=== PATIENT | male | born 1960 | race Caucasian/White ===

== ENCOUNTER 2024-07-05 14:46 | Outpatient (AMB) | payer BC, SELFPAY ==
--- NOTE | 2024-07-05 14:52 | A.OFFPC_ITS ---
Vital Signs 07/05/24 14:59 Height 6 ft Weight 173 lb 2 oz BMI 23.5 BP 128/84 Blood Pressure Location Rt brachial Position Sitting Respiration 15 Pulse 56 Pulse Source Pulse Oximeter Temp 97.6 F Temp Source Oral Pulse Oximetry (%) 98 Oxygen Delivery Method Room Air Intake Visit Reasons: est care/Medication Intake Note: Ed presents in the office today to establish care. Allergies aspirin Allergy (Verified 07/05/24 15:14) Hives Medication List - Last Reconciled 07/05/24 by Kenji Guillory CNP No Known Home Meds Tobacco use date assessed: 07/05/24 Fall risk assessment: No Falls in past year Last assessed Fall Risk: 07/05/24 Dental Screening Dental Screen Date: 07/05/24 Did you have a dental visit in the last 12 months?: Yes Did you have a dental problem in the last 6 months where you did not have access to dental care?: No Was dental information given to patient?: Patient has dentist HPI HPI Comments History of Present Illness Details 64-year-old male presents to establish c are. Prior PCP? - [facility] Last office visit/CPE/labs - 2-3 years years ago Acute issue(s) - Reports persistent sour taste in his t hroat, worse upon waking up in the morning. Notes associated nausea. His symptoms waxes and wanes and has been ongoing for about a year. His symptoms usually improve with alcohol. - GERD. He notes occasionally heartburn with certain food or alcohol. He he takes cimetidine occasionally. 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 Does not vape. Drinks 6 pac ks beer on weekends. Smoke a couple hits of cannabis daily - Has been making healthy dietary choice s. Active but does not exercise. Generally sleep well Health maintenance - Last eye exam was 2 months ago with [facility]. He will sign a release for his PCP to obtain his opthlamology record - Last dental visit was earlier this thu - Last tetanus vaccine was more than 10 years ago; received Tdap vaccine today - Has not been vaccinated for the flu th is season; declines vaccination - He has never been vaccinated for shing les. Encouraged to get vaccinated for shingles at the local pharmacy. Declines vaccination - Last colonoscopy was over 3 years ago at [facility] [place]: Benign polyps. Will requests his colonoscopy record for review [facility] Family History (Updated 07/05/24 @ 16:02 by Latha Cuellar MA) Mother Diabetes Family/Other Diabetes Alcoholism Other Substance abuse Social History (Updated 07/05/24 @ 14:59 by Latha Cuellar MA) Housing: House Alcohol intake: current Patient Tobacco Use Status: Never used Tobacco e-Cigarette/Vaping Use: Never Used Second Hand Smoke Exposure: No Substance Use Type: Marijuana service: No Current occupational status: employed Current occupation: Engineering Current occupational exposures/hazards: No Cognitive needs: No Hearing needs: No Vision needs: Yes Questionnaire PHQ-9 Over the last 2 weeks, how often have you been bothered by any of the following problems? 1. Little interest or pleasure in doing things: not at all 2. Feeling down, depressed, or hopeless: not at all 3. Trouble falling or staying asleep, or sleeping too much: not at all 4. Feeling tired or having little energy: not at all 5. Poor appetite or overeating: not at all 6. Feeling bad about yourself - or that you are a failure or have let yourself or your family down: not at all 7. Trouble concentrating on things, such as reading the newspaper or watching television: not at all 8. Moving or speaking so slowly that other people could have noticed. Or the opposite - being so fidgety or restless that you have been moving around a lot more than usual: not at all 9. Thoughts that you would be better off or of hurting yourself in some way: not at all Total score: 0 Depression Screening Interpretation: Negative Depression Screening Done: Yes 70083 - PHQ-9 Billing: Patient declined-do not bill Source: Developed by Drs. Zoran Woodall, Natividad Venegas, Erick Garcia and colleagues, with an educational mickey from [employer]. Thrive Questionnaire Date Thrive assessed: 07/05/24 I am a: Patient What is your living situation today?: I have a steady place to live Within the past 12 months, did the food you bought not last and you didn't have the money to get more?: Never true Within the past 12 months, did you worry whether your food would run out before you got money to buy more?: Never true Do you have trouble paying for medicines?: No Do you have trouble getting transportation to medical appointments?: No Do you have trouble paying your heating and electricity bill?: No Do you have trouble taking care of your child, family member or friend?: No Do you have trouble with day-to-day activities such as bathing, preparing meals, shopping, managing finances, etc.?: No Are you currently unemployed and looking for a job?: No Are you interested in more education?: No Please select the resources that you would like help with: None Currently or been in a relationship where the following occur: I choose not to answer THRIVE Score: 0 AUDIT C Alcohol Use Questionnaire (AUDIT-C) 1. How often do you have a drink containing alcohol?: 2-4 times a month 2. How many drinks containing alcohol do you have on a typical day when you are drinking?: 5 or 6 3. How often do you have six or more drinks on one occasion?: Monthly Total Score: 6 Score Reviewed/Action Taken: Yes SOLO-7 AMB Questionnaire SOLO-7 Date SOLO - 7 assessed: 07/05/24 Feeling nervous, anxious, or on edge: 0 = Not at all Not being able to stop or control worryin = Not at all Worrying too much about different things: 0 = Not at all Trouble relaxin = Not at all Being so restless that it is hard to sit still: 0 = Not at all Becoming easily annoyed or irritable: 0 = Not at all Feeling afraid as if something awful might happen: 0 = Not at all Total SOLO-7 score (0-4 normal; 5-9 mild; 10-14 moderate; 15-21 severe): 0 Source: Developed by Drs. Zoran Woodall, Natividad Venegas, Erick Garcia and colleagues, with an educational mickey from [employer]. SOLO-7 Assessment Billing SOLO-7 Assessment Tool: SOLO-7 Assessment 59632 Review of Systems Const Details: Denies chills, Denies fatigue, Denies fever(s), Denies headache(s) and Denies weakness HEENT Denies change in vision, Denies dizziness, Denies headache(s), Denies hearing loss, Denies nasal congestion, Denies sinus pain, Denies sinus pressure and Denies sore throat Card Denies chest pain, Denies lightheadedness, Denies dyspnea and Denies other (p alpitations) Resp Denies cough, Denies dyspnea and Denies wheezing GI Reports sour taste, Denies abdominal pain, Denies melena, Denies hematochezia, Denies change in bowel habits, Denies dyspepsia and Denies nausea Denies hematuria and Denies dysuria Musc Denies abnormal gait, Denies myalgias, Denies arthralgias, Denies numbness and Denies tingling Skin/Breast Denies rash, Denies unusual bruising and Denies wounds Neuro Denies abnormal gait, Denies dizziness, Denies headache(s), Denies memory loss, Denies numbness, Denies Sensory deficit (Neuro), Denies tingling and Denies weakness Psych Denies anxiety, Denies depression and Denies memory loss Endo Denies cold intolerance, Denies fatigue, Denies heat intolerance, Denies polydipsia and Denies polyuria Jake/Lymph Denies easy bleeding and Denies easy bruising Aller/Immun Denies wheezing Physical exam (Primary Care) Vital Signs: Last Vital Signs Temp 97.6 F 07/05/24 14:59 Pulse 56 07/05/24 14:59 Resp 15 07/05/24 14:59 BP 128/84 07/05/24 14:59 Pulse Ox 98 07/05/24 14:59 Oxygen Delivery Method Room Air 07/05/24 14:59 BMI result Body Mass Index 23.5 Tobacco/Smoking Status: Tobacco use Status Tobacco use date assessed 07/05/24 07/05/24 15:02 Patient Tobacco Use Status Never used Tobacco 07/05/24 15:02 e-Cigarette/Vaping Use Never Used 07/05/24 15:02 PHQ-9: PHQ-9 Score PHQ-9: Total score 0 07/05/24 15:54 Depression Screening Interpretation: Negative Thrive Assessment: Date of Thrive Assessment Date Thrive assessed 07/05/24 07/05/24 15:02 Currently or been in a relationship where the following occur: I choose not to answer Const Other: General: no acute distress, well developed, alert and awake Nutritional Appearance: well nourished Orientation/consciousness: patient oriented x3 [facility] Head: Yes normocephalic and Yes atraumatic Ears: hearing grossly normal bilaterally and TM's normal bilaterally General nose exam: Normal external nose present and Normal nares present Mouth: Normal oral and palatal mucosa present and moist mucous membranes Teeth and gingiva: dentition normal Throat: Yes oropharynx normal Eyes Pupils: Equal, round and reactive pupils present and Pupil accommodation reflex normal EOM: EOMs intact bilaterally Neck Neck: Yes normal visual inspection, Yes no lymphadenopathy and Yes trachea midline Thyroid: Thyroid normal Carotids: no bruits Lymphatic: no lymphadenopathy noted Chest Chest palpation & inspection: normal inspection of the chest Resp Effort & Inspection: normal respiratory effort Auscultation: clear to auscultation bilaterally Cardio Rate: regular rate Rhythm: regular rhythm Heart sounds: S1 normal heart sound present, S2 normal heart sound present, no gallops, no murmurs and no rubs Bruits: no abdominal aortic bruits and no carotid bruits GI Palpation (GI): No Abdominal aortic bruit present, Soft to palpation, nontender, No hepatosplenomegaly present and No Rebound tenderness present Auscultation: normal bowel sounds General: Yes no CVA tenderness Back/Spine/Pelvis Back: no CVA tenderness Cervical Spine: cervical ROM normal and No Cervical spine tenderness Thoracic/Lumbar Spine: thoraco-lumbar ROM normal, No pain with thoraco-lumbar ROM, No thoracic spinal tenderness and No lumbar spinal tenderness Skin General: warm and dry. Normal skin color. Normal skin turgor Lesions: no lesions Rashes: no rashes Trauma: no lacerations or abrasions Wounds: no wounds Nails: normal Neuro General: patient oriented x3, gait normal and CN's II-XI intact bilaterally Cranial nerves: Yes Equal, round and reactive pupils present Cognition (Neuro): normal cognition Gait exam (Neuro): Normal gait present Motor exam (neuro): 5/5 motor strength present throughout Sensory Exam: No Sensory deficit (Neuro) Deep tendon reflexes (DTR's): Right patellar reflex intensity grade: 2+ and Left patellar reflex intensity grade: 2+ Extrem General: Yes normal to inspection, No edema and No calf tenderness Psych Appearance: grossly normal Affect: normal affect Attitude: cooperative Thought process: Normal thought process present Immunizations Boostrix Tdap 2.5 Lf unit-8 mcg-5 Lf/0.5 mL intramuscular syringe Performing Provider: Kenji Guillory CNP [place] [facility] Administered by: Misbah Mai RN on 07/05/24 15:54 Dose Route Admin Location Dispensed Lot Number Expiration Date NDC Culinary Assistant 0.5 mL IM Left Deltoid 0.5 mL [id number] 03/18/26 08537-088-49 [employer] VIS Given Date VIS Provided VIS Publication Date 07/05/24 Single Vaccine 20 Eligibility Eligibility Date Funding Source Not [facility] Eligible 07/05/24 Private Administration Comments: Vaccination administered by Latha Cuellar MA under direct observation of RN Coding Level of Care Code New Pt Level 3 (48931) New Pt Prev Care 40-64y(51623) Diagnoses Normal physical examination, routine Z00.00 GERD (gastroesophageal reflux disease) K21.9 Laboratory tests ordered as part of a complete physical exam (CPE) Z00.00 Additional Codes SOLO-7 Assessment Billing - SOLO-7 Assessment Tool: SOLO-7 Assessment 06161 ([id number]) Assessment & Plan Assessment & Plan (1) Normal physical examination, routine: Code(s): Z00.00 - Encounter for general adult medical examination without abnormal findings Category: Medical Plan: No significant functional limitation noted. Continue current treatment regimen. Healthy diet and routine exercise encouraged. Perform lab work and follow-up for telehealth visit for labs review in 2-3 weeks. Return sooner with symptoms or concerns. Verbalized understanding and agreed with the plan. (2) GERD (gastroesophageal reflux disease): Code(s): K21.9 - Gastro-esophageal reflux disease without esophagitis Category: Medical Plan: He reports persistent sour taste in his throat, worse upon waking up in the morning. Notes associated nausea. His symptoms waxes and wanes and has been ongoing for about a year. His symptoms usually improve with alcohol. He notes occasionally heartburn with certain food or alcohol. He he takes cimetidine occasionally. Likely acid reflux. Omeprazole 20 mg daily ordered; advised to take as prescribed. Advised to avoid fatty or greasy foods and limit alcohol intake. Follow-up with worsening or new symptoms. Verbalized understanding and agreed with the plan. (3) Laboratory tests ordered as part of a complete physical exam (CPE): Code(s): Z00.00 - Encounter for general adult medical examination without abnormal findings Category: Medical Plan: Fasting labs ordered as part of a complete physical exam. Advised to fast for at least 10 hours before getting labs drawn. May drink water Verbalized understanding and agreed with treatment plan. Orders: Orders TDaP Immunization Today Z23 - Encounter for immunization Comprehensive Mineral. Panel Fast Today Z00.00 - Encounter for general adult medical examination without abnormal findings Microalbumin, Random (w Creat) Today Z00.00 - Encounter for general adult medical examination without abnormal findings PSA, Ultra Sensitive Today Z00.00 - Encounter for general adult medical examination without abnormal findings Vitamin D 25-OH Total Today Z00.00 - Encounter for general adult medical examination without abnormal findings Complete Blood Count Auto Diff Today Z00.00 - Encounter for general adult medical examination without abnormal findings Lipid Panel Today Z00.00 - Encounter for general adult medical examination without abnormal findings TSH reflex Free T4 Today Z00.00 - Encounter for general adult medical examination without abnormal findings UA CC w/rflx Micro + Cult Today Z00.00 - Encounter for general adult medical examination without abnormal findings Medications: New omeprazole 20 mg PO DAILY 30 days 30 caps 3RF
[2024-07-05 14:59] VITALS: BP 128/84; PULSE 56; RESP 15; TEMP 36.4; O2SAT 98; BMI 23.5
== END 2024-07-05 16:31 | disposition home or self-care (01) ==
LOC: HO.HMCFM 14:47
PROVIDERS: PCP Nurse Practitioner Family; Visit Provider Nurse Practitioner Family
DX: Z00.00 Encounter for general adult medical examination without abnormal findings (principal); K21.9 Gastro-esophageal reflux disease without esophagitis; Z23 Encounter for immunization

== ENCOUNTER → 2024-07-05 14:46 | Outpatient (BNVA) | payer BC, SELFPAY | PROVIDERS: PCP Nurse Practitioner Family; Visit Provider Nurse Practitioner Family | DX: Z00.00 Encounter for general adult medical examination without abnormal findings (principal); Z23 Encounter for immunization; K21.9 Gastro-esophageal reflux disease without esophagitis | CPT/HCPCS: 90471; 90715; 96127 ==

== ENCOUNTER 2024-07-29 14:50 | Outpatient (AMB) | payer BC, SELFPAY ==
--- NOTE | 2024-07-29 14:38 | A.OFFPC_ITS ---
Intake Visit Reasons: Telehealth 2-3 wks labs review Intake Note: patient her for 2-3 wks follow up for labs Steward/Stewardess Wine Required: No Allergies aspirin Allergy (Verified 07/29/24 14:39) Hives Tobacco use date assessed: 07/29/24 Fall risk assessment: No Falls in past year Last assessed Fall Risk: 07/29/24 Dental Screening Dental Screen Date: 07/29/24 Did you have a dental visit in the last 12 months?: Yes Did you have a dental problem in the last 6 months where you did not have access to dental care?: No Was dental information given to patient?: Patient has dentist HPI HPI Comments History of Present Illness Details 64-year-old [facility] of recent lab results. He reports continued sour taste in his mouth. He stopped taking omeprazole after week and a half because he noticed no improvement. No acute symptoms at this time. [facility] Family History (Updated 07/05/24 @ 16:02 by Latha Cuellar MA) Mother Diabetes Family/Other Diabetes Alcoholism Other Substance abuse Social History (Updated 07/05/24 @ 14:59 by Latha Cuellar MA) Housing: House Alcohol intake: current Patient Tobacco Use Status: Never used Tobacco e-Cigarette/Vaping Use: Never Used Second Hand Smoke Exposure: No Substance Use Type: Marijuana service: No Current occupational status: employed Current occupation: Engineering Current occupational exposures/hazards: No Cognitive needs: No Hearing needs: No Vision needs: Yes Questionnaire Thrive Questionnaire Date Thrive assessed: 06/28/24 I am a: Patient What is your living situation today?: I have a steady place to live Within the past 12 months, did the food you bought not last and you didn't have the money to get more?: Never true Within the past 12 months, did you worry whether your food would run out before you got money to buy more?: Never true Do you have trouble paying for medicines?: No Do you have trouble getting transportation to medical appointments?: No Do you have trouble paying your heating and electricity bill?: No Do you have trouble taking care of your child, family member or friend?: No Do you have trouble with day-to-day activities such as bathing, preparing meals, shopping, managing finances, etc.?: No Are you currently unemployed and looking for a job?: No Are you interested in more education?: No Please select the resources that you would like help with: None Currently or been in a relationship where the following occur: I choose not to answer THRIVE Score: 0 SOLO-7 AMB Questionnaire SOLO-7 Date SOLO - 7 assessed: 07/05/24 Source: Developed by Drs. Zoran Woodall, Natividad Venegas, Erick Garcia and colleagues, with an educational mickey from [employer]. Review of Systems Const Details: Denies chills, Denies fatigue, Denies fever(s), Denies headache(s) and Denies weakness Cardiac Denies chest pain, Denies claudication, Denies leg edema, Denies lightheadedness, Denies palpitations, Denies dyspnea, Denies dyspnea on exertion, Denies orthopnea and Denies other (Loss of consciousness) Resp Denies cough, Denies excessive phlegm production, Denies dyspnea, Denies dyspnea on exertion, Denies snoring and Denies wheezing GI: Reports as per HPI Physical exam (Primary Care) Tobacco/Smoking Status: Tobacco use Status Tobacco use date assessed 07/29/24 07/29/24 14:40 Patient Tobacco Use Status Never used Tobacco 07/29/24 14:40 e-Cigarette/Vaping Use Never Used 07/29/24 14:40 Thrive Assessment: Date of Thrive Assessment Date Thrive assessed 06/28/24 07/29/24 14:40 Currently or been in a relationship where the following occur: I choose not to answer Const Other: Patient is alert and oriented x3 Telehealth Telehealth Telehealth Platform: Telephone Location of provider rendering services: practice address Location of patient: address on file Patient Identification confirmed using: Name, : Yes Telehealth method: voice only Patient verbally consented to treatment: Yes Patient verbally consented to billing insurance company: Yes Patient informed of any privacy concerns related to visit: Yes Coding Level of Care Code Tele New Pt Level 3 (19132) Diagnoses Elevated LDL cholesterol level E78.00 Vitamin D deficiency E55.9 GERD (gastroesophageal reflux disease) K21.9 Time Spent (min) 20 Assessment & Plan Assessment & Plan (1) Elevated LDL cholesterol level: Code(s): E78.00 - Pure hypercholesterolemia, unspecified Category: Medical Plan: Recent LDL level is slightly elevated, 106, triglycerides, total cholesterol, and HDL levels are normal. Advised to limit foods high in saturated fat and avoid foods high in trans fat. Routine exercise encouraged. Will monitor lipid panel level annually or if present with related symptoms or concerns. Verbalized understanding and agreed with the plan. (2) Vitamin D deficiency: Code(s): E55.9 - Vitamin D deficiency, unspecified Category: Medical Plan: Recent vitamin-D level is significantly low, 18. Vitamin D3 50 mcg daily ordered; advised to take as prescribed. Informed that the sun is a good source of vitamin D. Perform vitamin D3 blood work 2-3 days before next visit. Follow-up for telehealth visit in 8 weeks. Return sooner with symptoms or concerns. Verbalized understanding and agreed with the plan. (3) GERD (gastroesophageal reflux disease): Code(s): K21.9 - Gastro-esophageal reflux disease without esophagitis Category: Medical Plan: He reports continued sour taste in his mouth. He stopped taking omeprazole after week and a half because he noticed no improvement. Encouraged to continue to take omeprazole. Encouraged to avoid fatty or greasy foods. Follow-up with worsening or new symptoms. Referred to Gastroenterology. Verbalized understanding and agreed with the plan. Orders: Orders Vitamin D 25-OH Total 2 Months E55.9 - Vitamin D deficiency, unspecified Referrals Gastroenterology Referral K21.9 - Gastro-esophageal reflux disease without esophagitis Medications: New cholecalciferol (vitamin D3) 50 mcg PO DAILY 90 days 90 tabs 3RF
--- OUTSIDE RECORDS SUMMARY | 2024-07-29 14:52 | XMS_ITS | Clinical Summary ---
Author Organization [employer] [facility] Address [address] [place] [address] Care Team Providers Care Shotblaster Name Role Phone Unavailable Primary Care Provider Unavailabl e Encounters Date Type Department Care Team Description 05/20/2024 Population Health Risk Score Critical [facility] Care [facility] (C3) Department [address] [facility] [address] [place] [address] Provider, Population Health Generic from Last 3 Months Social History Tobacco Use Types Packs/Day Years Used Date Smoking Tobacco: Never Assessed Sex and Gender Information Value Date Recorded Sex Assigned at Not on file Legal Sex Male 1:50 PM EST Gender Identity Not on file Sexual Orientation Not on file Plan of Treatment Health Maintenance Due Date Last Done Comments CT Colonography 1960 Colonoscopy 1960 Colorectal Cancer Screening 1960 Depression Screening 1960 FIT DNA/Cologuard 1960 FIT 1960 FOBT 1960 HIV Screening 1960 Lipid Panel 1960 SDOH Screening 1960 Sigmoidoscopy 1960 Disability Screening 1960 Alcohol/Substance Use Screening 1972 Tobacco Screening 1972 Hepatitis C Screening 1978 DTaP/Tdap/Td Vaccines (1 - Tdap) 05/14/1979 Pneumococcal Vaccine: 50+ Ye ars (1 of 1 - PCV) 2010 Zoster Vaccines (1 of 2) 2010 COVID-19 Vaccine ( - 2023-2 5 season) 2023 Influenza Vaccine (#1) 2023 RSV Patients and Pa tients Aged 60 years or older (1 - 1-dose 75+ series) 05/14/2035 HIB Vaccines Aged Out No longer eligi ble based on patient's age to complete this topic HPV Vaccines Aged Out No longer eligi ble based on patient's age to complete this topic Hepatitis A Vaccines Aged Out No long er eligible based on patient's age to complete this topic Hepatitis B Vaccines Aged Out No long er eligible based on patient's age to complete this topic IPV Vaccines Aged Out No longer eligi ble based on patient's age to complete this topic Meningococcal B Vaccine Aged Out No l onger eligible based on patient's age to complete this topic Meningococcal Vaccine Aged Out No xiomy terri eligible based on patient's age to complete this topic RSV under 20 months Aged Out No longe r eligible based on patient's age to complete this topic Rotavirus Vaccines Aged Out No longer eligible based on patient's age to complete this topic
== END 2024-07-29 15:26 | disposition home or self-care (01) ==
LOC: HO.HMCFM 14:50
PROVIDERS: PCP Nurse Practitioner Family; Visit Provider Nurse Practitioner Family
DX: E78.00 Pure hypercholesterolemia, unspecified (principal); E55.9 Vitamin D deficiency, unspecified; K21.9 Gastro-esophageal reflux disease without esophagitis

== ENCOUNTER → 2024-07-29 14:50 | Outpatient (BNVA) | payer BC, SELFPAY | PROVIDERS: PCP Nurse Practitioner Family; Visit Provider Nurse Practitioner Family | DX: Z13.89 Encounter for screening for other disorder (principal) ==

== ENCOUNTER 2024-09-23 12:38 | Outpatient (REF) | payer BC, SELFPAY ==
--- OUTSIDE RECORDS SUMMARY | 2024-09-23 12:40 | XMS_ITS | Clinical Summary ---
Author Organization [employer] Address [address] [place] [address] Care Team Providers Care Commercial Lines Insurance Agent Name Role Phone Unavailable Primary Care Provider Unavailabl e Social History Tobacco Use Types Packs/Day Years [...] 2023-2 5 season) 2023 Influenza Vaccine (#1) 2024 RSV Patients and Pa tients Aged 60 [...]
[2024-09-23 13:57] LABS: MANUAL DIFF FLAG NO
[2024-09-23 14:02] LABS: Appearance Urine Clear; Glucose Urine UA Negative (Negative); PH 6.0 (5.0-9.0); Specific Gravity - Urine 1.010 (1.005-1.025)
[2024-09-23 14:08] LABS: Hematocrit 40.7 % (42.0-52.0); Hemoglobin 13.5 g/dl (14.0-18.0); Imm Gran Abs Auto 0.02 X10*3/uL (0.00-0.03); Imm Gran Pct Auto 0.3 % (0.0-0.4); Lymphocytes Absolute Auto 1.9 X10*3/uL (1.2-4.9); Mean Corpuscular HGB Conc 33.2 g/dl (31.0-36.0); Mean Corpuscular Hemoglobin 29.9 pg (27.0-33.0); Mean Corpuscular Volume 90.2 fL (80.0-98.0); NRBC Abs Auto 0.000 X10*3/uL (0.0-0.012); NRBC Pct Auto 0.0 /100WBC (0.0-0.2); Platelet Count 183 X10*3/uL (160-400); Red Blood Count 4.51 X10*6/uL (4.60-5.80); White Blood Count 6.8 X10*3/uL (4.8-10.8)
[2024-09-23 14:27] LABS: Alanine Aminotransferase 15 U/L (0-40); Albumin Level 4.6 g/dL (3.5-5.0); Alkaline Phosphatase 73 U/L (39-117); Anion Gap 10 (12-20); Aspartate Amino Transferase 20 U/L (5-37); Blood Urea Nitrogen 12 mg/dL (9-16); Calcium 9.0 mg/dL (8.4-10.2); Carbon Dioxide 28 mmol/L (22-29); Chloride 106 mmol/L (96-108); Cholesterol 180 mg/dL (<200); Estimated Glomerular Filt Rate > 60; HDL Cholesterol 64 mg/dL (>40); Potassium 4.0 mmol/L (3.3-5.1); Sodium 140 mmol/L (135-145); Total Protein 7.4 g/dL (6.5-8.0); Triglycerides 47 mg/dL (<150)
[2024-09-27 23:19] LABS: PSA, Ultra Sensitive 4.19 ng/mL
== END 2024-09-23 12:39 | disposition home or self-care (01) ==
LOC: HO.WFDLDS 12:38
PROVIDERS: Visit Provider Nurse Practitioner Family
DX: Z00.00 Encounter for general adult medical examination without abnormal findings (principal); Z12.5 Encounter for screening for malignant neoplasm of prostate
CPT/HCPCS: 36415; 80053; 80061; 81003; 82043; 82306; 82570; 84153; 84443; 85025

== ENCOUNTER 2024-10-13 15:00 | Outpatient (REF) | payer BC, SELFPAY ==
--- NOTE | ~2024-10-13 | XR_ITS ---
EXAMINATION: XR CHEST 2 VIEWS HISTORY: R63.4 - Abnormal weight loss COMPARISON: There are no prior studies available for comparison. FINDINGS: PA and lateral views of the chest are submitted. The lungs are expanded and clear. There is no pleural effusion, pneumothorax, or pulmonary vascular congestion. The heart is normal in size. The bones are intact. XR/XR chest 2V IMPRESSION: Clear lungs. Electronically signed by: Zoran Whitfield MD 10/14/2024 07:11 AM EDT
[2024-10-13 17:18] LABS: Hemoglobin A1C 140.9599 umol/L; Total Hemoglobin (HGBA1C) 3650.3574 umol/L
[2024-10-13 17:36] LABS: Iron 91 mcg/dL (45-160); Percent Iron Saturation 30 % (15-50); Total Iron Binding Capacity 299 mcg/dL (228-428); Unsaturated Iron Binding 208 ug/dL
[2024-10-14 08:19] LABS: HBS Num1 0.00 mIU/mL (0-7.99); HBc Num1 0.08 S/CO (0.00-0.79); HBsAGNum1 0.43 S/CO (0.00-0.99); Hepatitis A Antibody IgM 0.11 Index (0-0.79); Hepatitis B Surface Antigen Negative (Negative); ~HepC Num1 0.09 S/CO (0.00-0.79); ~Hepatitis A Antibody IgM Nonreactive (Nonreactive); ~Hepatitis B Surface Antibody NONREACTIVE (Nonreactive); ~Hepatitis C Antibody Nonreactive (Nonreactive)
== END 2024-10-13 15:01 | disposition home or self-care (01) ==
LOC: HO.XRAY 15:00
PROVIDERS: PCP Nurse Practitioner Family; Visit Provider Nurse Practitioner Family
DX: K21.9 Gastro-esophageal reflux disease without esophagitis (principal); R13.10 Dysphagia, unspecified; K57.90 Diverticulosis of intestine, part unspecified, without perforation or abscess without bleeding; K64.9 Unspecified hemorrhoids; R11.0 Nausea; R53.83 Other fatigue; R63.4 Abnormal weight loss; D64.9 Anemia, unspecified; Z12.11 Encounter for screening for malignant neoplasm of colon; Z11.59 Encounter for screening for other viral diseases; Z79.899 Other long term (current) drug therapy
CPT/HCPCS: 36415; 71046; 83036; 83540; 86704; 86706; 86709; 86803; 87340

== ENCOUNTER 2024-10-13 15:00 | Outpatient (AMB) | payer BC, SELFPAY ==
--- NOTE | 2024-10-13 15:03 | MHC.OFFVIS ---
Vital Signs 10/13/24 15:04 Height 6 ft Weight 178 lb BMI 24.1 BP 152/86 H Blood Pressure Location Rt brachial Position Sitting Pulse 82 Pulse Source Pulse Oximeter Pulse Oximetry (%) 96 Oxygen Delivery Method Room Air Intake Visit Reasons: gerd Intake Note: Patient new consult for GERD. Patient cc: C.O. chronic GERD for multiple years. Pt states his PCP has had him taking PPI with little to no relief. Pt also reports intermittent constipation; however, this is not as pressing of a concern. [place] + EGD documented under surgical hx. Human Services Manager Required: No Accompanied by: Self / Same As Patient Allergies aspirin Allergy (Verified 10/13/24 15:03) Hives Medication List - Last Reconciled 10/13/24 by Elise Ayala CNP cholecalciferol (vitamin D3) 50 mcg PO DAILY 90 days omeprazole 20 mg PO DAILY HPI HPI gerd: Details: Patient is a 64-year-old male with PMH of elevated LDL. Referred by PCP for further evaluation of GERD. Ed reports experiencing reflux symptoms for the past two years. He describes a sour taste coming up through his nose and mouth, which he likens to sour phlegm, but denies any burning sensation typical of heartburn. Symptoms occasionally include regurgitation of food particles, particularly during meals, and food frequently gets stuck in his throat, requiring effort to swallow. These reflux symptoms have persisted despite taking omeprazole, which he has been consuming during dinner with food. 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 He also reports difficulty swallowing for around 10 years, worsening in the past year. Additionally, he has morning nausea without vomiting and a general feeling of illness and fatigue upon waking, attributing these symptoms to his GI issues. Over the past year, he experienced unintentional weight loss from 195 lbs to 176?180 lbs but notes his weight has stabilized at 180 lbs. Ed has intermittent constipation (three bowel movements per week, requiring straining) and loose stools occasionally. Type 3 identified on [place] stool chart. He denies any sinus-related issues, though a past infected tooth prompted dental treatment without symptom resolution. His brother had throat cancer with esophageal resection. Lifestyle factors include frequent beer consumption (six-pack weekly) and daily marijuana use, paired with a variable diet lacking significant vegetable and fruit intake. Patient denies: fever/chills, vomiting, pyrosis, unintentional wt loss, ab pain or melena/hematochezia. Social hx: -Diet: Two cups of coffee for breakfast, sandwich and chips for lunch, hot meals for dinner (e.g., hamburgers, fish, pork, minimal fruits/vegetables). -Alcohol Use: Approximately six beers every weekend. -Tobacco Use: Denies tobacco use, past or current. -Drug Use: Smokes marijuana daily. -Occupation: Engineering work (details unspecified). - family hx as below - denies personal hx of CA -denies significant cardiopulmonary history -tolerated anesthesia in the past without difficulty. [facility] Medical History (Updated 10/13/24 @ 16:21 by Elise Ayala CNP) Colon cancer screening Constipation Dysphagia Unintentional weight loss Surgical History History of colonoscopy History of esophagogastroduodenoscopy (EGD) Family History (Updated 10/13/24 @ 15:32 by Elise Ayala CNP) Mother Diabetes Family/Other Diabetes Alcoholism Brother Throat cancer Other Substance abuse Social History Housing: House Alcohol intake: current Patient Tobacco Use Status: Never used Tobacco e-Cigarette/Vaping Use: Never Used Second Hand Smoke Exposure: No Substance Use Type: Marijuana service: No Current occupational status: employed Current occupation: Engineering Current occupational exposures/hazards: No Cognitive needs: No Hearing needs: No Vision needs: Yes Review of Systems Const Reports as per HPI ENT Reports as per HPI Card Reports as per HPI Resp Reports as per HPI GI Reports as per HPI Reports as per HPI Physical Exam Vital Signs: Last Vital Signs Pulse 82 10/13/24 15:04 BP 152/86 H 10/13/24 15:04 Pulse Ox 96 10/13/24 15:04 Oxygen Delivery Method Room Air 10/13/24 15:04 BMI result Body Mass Index 24.1 Const General: healthy appearing, no acute distress and well developed Nutritional Appearance: average body habitus Orientation/consciousness: patient oriented x3 HEENT Head: Yes normal to inspection, Yes normocephalic and Yes atraumatic Face and sinus: Yes normal facial exam Eyes General: appearance normal, both eyes and all related structures Neck Neck: Yes normal visual inspection Resp Effort & Inspection: normal respiratory effort, able to speak in complete sentences, no tracheal deviation and symmetric chest movement Auscultation: clear to auscultation bilaterally Cardio Jugular venous distension: no JVD Rate: regular rate Rhythm: regular rhythm Heart sounds: S1 normal heart sound present, S2 normal heart sound present, no gallops and no murmurs GI Inspection: Yes normal to inspection and No distended Palpation (GI): Soft to palpation, not firm, nontender and No hepatosplenomegaly present Auscultation: normal bowel sounds Neuro General: patient oriented x3 Gait exam (Neuro): Normal gait present Psych Appearance: grossly normal Mental Status: mental status grossly normal Speech and movement: Normal speech and movement present Affect: normal affect Attitude: cooperative Thought process: Normal thought process present Thought content: Normal thought content present Insight: Good insight present (Psych) Judgement: Good judgement present (Psych) Assessment & Plan Assessment & Plan (1) GERD (gastroesophageal reflux disease): Code(s): K21.9 - Gastro-esophageal reflux disease without esophagitis Category: Medical Qualifiers: Esophagitis presence: without esophagitis Qualified Code(s): K21.9 - Gastro-esophageal reflux disease without esophagitis Plan: Sour taste regurgitation is consistent with reflux, compounded by inappropriate omeprazole use and possible muscular dystrophy-related swallowing impairment. Additional Testing: -Upper endoscopy for persistent symptoms. -Swallow study to evaluate dysphagia. Medication Management: -Omeprazole 40mg oral daily. -Famotidine 10mg oral HS for complementary reflux and histamine-blocking effects. Lifestyle Recommendations: Encouraged to take omeprazole as prescribed, taken at least 30-60 minutes before a meal. Education on GERD prevention : -Advised against heavy meals; encouraged small, frequent meals instead of large ones. - Instructed to remain upright for 2?3 hours after eating. - Advised to avoid late-night meals, spicy foods, caffeine, alcohol, known dietary triggers, and tight-fitting clothing. - Emphasis placed on gradual implementation of lifestyle changes to improve adherence and symptom control. (2) Dysphagia: Code(s): R13.10 - Dysphagia, unspecified Category: Medical Qualifiers: Dysphagia type: unspecified Qualified Code(s): R13.10 - Dysphagia, unspecified Plan: Long-standing issues with swallowing food, likely exacerbated by muscular dystrophy and tooth loss limiting chewing ability. Additional Testing: Swallow study and chest X-ray. Referral: Potential referral to speech therapy or swallow therapist based on findings. Lifestyle Recommendations: Emphasis on soft, [id number] foods. (3) Constipation: Code(s): K59.00 - Constipation, unspecified Category: Medical Qualifiers: Constipation type: unspecified constipation type Qualified Code(s): K59.00 - Constipation, unspecified Plan: History of straining during bowel movements and findings from a prior colonoscopy showing diverticulosis and hemorrhoids. Medication Management: Docusate sodium 100mg oral HS for stool softening. Reinforced lifestyle modifications to promote regularity: -higher fiber diet, examples provided -adequate hydration with water -150 minutes of moderate intensity exercise per week (4) Unintentional weight loss: Code(s): R63.4 - Abnormal weight loss Category: Medical Plan: ~10% weight drop over one year despite stabilized weight, with underlying prediabetes suspected. Additional Testing: Labs including fasting glucose, HbA1c, HIV, Hepatitis panel, iron studies (mild normocytic anemia), and chest X-ray to rule out other causes. Thyroid and liver enzymes already confirmed normal. Follow-Up: Discuss results and necessary referrals if indicated. (5) Colon cancer screening: Comment: 06/05/2020 colonoscopy complete with with adequate prep-diverticulosis of the sigmoid colon, otherwise colon normal to TI; external hemorrhoids. Recommendations to repeat in 5 years. Code(s): Z12.11 - Encounter for screening for malignant neoplasm of colon Category: Medical Plan: Based on recommendations due 2025. However, shared decision-making to complete at time of upper endoscopy. Medications: -prescriptions for laxative tablets and MiraLax sent to pharmacy; instructions for Gatorade purchase and clear liquid diet given. Patient educated on scheduling process, procedure preparation, including avoiding certain foods and ensuring clear liquid intake Advised on necessity for ride post-procedure due to sedation. Plan Follow-up in 3 months or sooner as needed Time: I spent a total of 45 minutes on the date of encounter which includes: Preparing to see the patient (reviewed previous documentation, test results and medical history) Performing a medically appropriate exam and/or evaluation Ordering medications, tests, and procedures Documenting clinical information in the health record Orders: Orders Hemoglobin A1c Today K21.9 - Gastro-esophageal reflux disease without esophagitis, R63.4 - Abnormal weight loss Hepatitis A,B,C Profile Today R63.4 - Abnormal weight loss XR chest 2V Today R63.4 - Abnormal weight loss IRON PROFILE Today D64.9 - Anemia, unspecified [place] barium swallow Today K21.9 - Gastro-esophageal reflux disease without esophagitis, R13.10 - Dysphagia, unspecified Medications: New bisacodyl (Dulcolax (bisacodyl)) Take four tablets pre colonoscopy instructions 20 mg (4 x 5 mg) PO ONCE 4 tabs 0RF 1 day polyethylene glycol 3350 (Miralax) per colonoscopy prep instructions 238 grams PO ONCE 238 grams 0RF omeprazole Take one tablet daily. Best taken 30 minutes before meal 40 mg PO DAILY 90 caps 1RF famotidine Take one tablet daily at bedtime 20 mg PO DAILY 90 tabs 1RF GERD docusate sodium Take two tablets at bedtime 200 mg (2 x 100 mg) PO BEDTIME 180 caps 3RF constipation Coding Level of Care Code New Pt New Pt Level 4 (12594) Patient Type New Diagnoses Gastroesophageal reflux disease without esophagitis K21.9 Esophagitis presence: without esophagitis Dysphagia, unspecified type R13.10 Dysphagia type: unspecified Constipation, unspecified constipation type K59.00 Constipation type: unspecified constipation type Unintentional weight loss R63.4 Colon cancer screening Z12.11
--- OUTSIDE RECORDS SUMMARY | 2024-10-13 15:03 | XMS_ITS | Clinical Summary ---
Author Organization [employer] Address [address] [place] [address] Care Team Providers Care Research Epidemiologist Name Role Phone Unavailable Primary Care Provider [...]
[2024-10-13 15:04] VITALS: BP 152/86; PULSE 82; O2SAT 96; BMI 24.1
== END 2024-10-13 15:51 | disposition home or self-care (01) ==
LOC: HO.HGI 15:01
PROVIDERS: PCP Nurse Practitioner Family; Visit Provider Nurse Practitioner Family
DX: K21.9 Gastro-esophageal reflux disease without esophagitis (principal); R13.10 Dysphagia, unspecified; K59.00 Constipation, unspecified; R63.4 Abnormal weight loss
CPT/HCPCS: 99204

== ENCOUNTER → 2024-10-13 16:11 | Outpatient (BNV) | payer BC, SELFPAY | PROVIDERS: PCP Nurse Practitioner Family; Visit Provider Radiology Diagnostic Radiology | DX: R63.4 Abnormal weight loss (principal) | CPT/HCPCS: 71046 ==

== ENCOUNTER 2024-10-18 15:15 | Outpatient (AMB) | payer BC, SELFPAY ==
--- NOTE | 2024-10-18 15:18 | A.OFFPC_ITS ---
Vital Signs 10/18/24 15:24 Height 6 ft Weight 180 lb BMI 24.4 BP 130/80 Blood Pressure Location Lt brachial Position Sitting Respiration 15 Pulse 62 Pulse Source Pulse Oximeter Temp 98 F Temp Source Temporal Artery Scan Pulse Oximetry (%) 95 Oxygen Delivery Method Room Air Intake Visit Reasons: trouble swallowing/possible diabetes /vit D def Intake Note: Ed presents in the office with trouble swallowing, possible diabetes and a vitamin D deficiency. Allergies aspirin Allergy (Verified 10/18/24 15:23) Hives Tobacco use date assessed: 10/18/24 Dental Screening Dental Screen Date: 10/18/24 Did you have a dental visit in the last 12 months?: Yes Did you have a dental problem in the last 6 months where you did not have access to dental care?: No Was dental information given to patient?: Patient has dentist HPI HPI Comments History of Present Illness Details 64-year-old male presents for review of recent lab results. He admits to taking his medications as prescribed without adverse reactions. He denies acute symptoms at this time. He is followed by [facility] G[facility]ology. [facility] Medical History (Updated 10/18/24 @ 15:34 by Kenji Guillory CNP) Colon cancer screening Constipation Dysphagia Unintentional weight loss Surgical History History of colonoscopy History of esophagogastroduodenoscopy (EGD) Family History Mother Diabetes Family/Other Diabetes Alcoholism Brother Throat cancer Other Substance abuse Social History (Updated 10/18/24 @ 15:24 by Latha Cuellar MA) Housing: House Alcohol intake: current Patient Tobacco Use Status: Never used Tobacco e-Cigarette/Vaping Use: Never Used Second Hand Smoke Exposure: No Use of substances other than those prescribed or required for medical reasons: Yes Substance Use Type: Marijuana service: No Current occupational status: employed Current occupation: Engineering Current occupational exposures/hazards: No Cognitive needs: No Hearing needs: No Vision needs: Yes Questionnaire Thrive Questionnaire Date Thrive assessed: 06/28/24 I am a: Patient What is your living situation today?: I have a steady place to live Within the past 12 months, did the food you bought not last and you didn't have the money to get more?: Never true Within the past 12 months, did you worry whether your food would run out before you got money to buy more?: Never true Do you have trouble paying for medicines?: No Do you have trouble getting transportation to medical appointments?: No Do you have trouble paying your heating and electricity bill?: No Do you have trouble taking care of your child, family member or friend?: No Do you have trouble with day-to-day activities such as bathing, preparing meals, shopping, managing finances, etc.?: No Are you currently unemployed and looking for a job?: No Are you interested in more education?: No Please select the resources that you would like help with: None Currently or been in a relationship where the following occur: I choose not to answer THRIVE Score: 0 SOLO-7 AMB Questionnaire SOLO-7 Date SOLO - 7 assessed: 07/05/24 Source: Developed by Drs. Zoran Woodall, Natividad Venegas, Erick Garcia and colleagues, with an educational mickey from [employer] ([employer]). Review of Systems Const Details: Const Denies chills, Denies fatigue, Denies fever(s), Denies headache(s) and Denies weakness ENT Denies dizziness and Denies headache(s) Card Denies chest pain, Denies lightheadedness, Denies dyspnea and Denies other (Palpitations) Resp Denies cough, Denies dyspnea, Denies wheezing and Denies other ( shortness of breath) GI Denies abdominal pain, Denies melena, Denies hematochezia, Denies change in bowel habits, Denies dyspepsia and Denies nausea Denies hematuria and Denies dysuria Musc Denies abnormal gait, Denies myalgias, Denies arthralgias, Denies numbness and Denies tingling Skin/Breast Denies rash, Denies unusual bruising and Denies wounds Neuro Denies abnormal gait, Denies dizziness, Denies headache(s), Denies memory loss, Denies numbness, Denies Sensory deficit (Neuro), Denies tingling and Denies weakness Psych Denies anxiety, Denies depression, Denies memory loss Endo Denies cold intolerance, Denies fatigue, Denies heat intolerance, Denies polydipsia and Denies polyuria Aller/Immun Denies wheezing Physical exam (Primary Care) Vital Signs: Last Vital Signs Temp 98 F 10/18/24 15:24 Pulse 62 10/18/24 15:24 Resp 15 10/18/24 15:24 BP 130/80 10/18/24 15:24 Pulse Ox 95 10/18/24 15:24 Oxygen Delivery Method Room Air 10/18/24 15:24 BMI result Body Mass Index 24.4 Tobacco/Smoking Status: Tobacco use Status Tobacco use date assessed 10/18/24 10/18/24 15:26 Patient Tobacco Use Status Never used Tobacco 10/18/24 15:24 e-Cigarette/Vaping Use Never Used 10/18/24 15:24 Thrive Assessment: Date of Thrive Assessment Date Thrive assessed 06/28/24 10/18/24 15:20 Currently or been in a relationship where the following occur: I choose not to answer Const Other: General: no acute distress and well developed Nutritional Appearance: well nourished Orientation/consciousness: patient oriented x3 HENMT Head: Yes normocephalic and Yes atraumatic Eyes General: appearance normal, both eyes and all related structures Pupils: Equal, round and reactive pupils present EOM: EOMs intact bilaterally Resp Effort & Inspection: normal respiratory effort Auscultation: clear to auscultation bilaterally Cardio Rate: regular rate Rhythm: regular rhythm Heart sounds: S1 normal heart sound present, S2 normal heart sound present, no gallops, no murmurs and no rubs GI Palpation (GI): No Abdominal aortic bruit present, Soft to palpation, nontender, No hepatosplenomegaly present and No Rebound tenderness present Auscultation: normal bowel sounds General: Yes no CVA tenderness Back/Spine/Pelvis Back: no CVA tenderness Cervical Spine: cervical ROM normal and No Cervical spine tenderness Thoracic/Lumbar Spine: thoraco-lumbar ROM normal, No pain with thoraco-lumbar ROM, No thoracic spinal tenderness and No lumbar spinal tenderness Extrem General: Yes normal to inspection, No edema and No calf tenderness Skin General: warm and dry. Normal skin color. Normal skin turgor Neuro General: patient oriented x3, gait normal and no focal neuro deficit Cranial nerves: Yes Equal, round and reactive pupils present Cognition (Neuro): normal cognition Gait exam (Neuro): Normal gait present Sensory Exam: No Sensory deficit (Neuro) Psych Appearance: grossly normal Affect: normal affect Attitude: cooperative Thought process: Normal thought process present Coding Level of Care Code Est Pt Level 3 (84746) Diagnoses Vitamin D deficiency E55.9 Prediabetes R73.03 Assessment & Plan Assessment & Plan (1) Vitamin D deficiency: Code(s): E55.9 - Vitamin D deficiency, unspecified Category: Medical Plan: Recent vitamin D level is normal, 42.3. Continue current treatment regimen. Will monitor vitamin-D level periodically or as needed. Follow-up for an extended physical exam on/after 07/05/2025. Return sooner with symptoms or concerns. Verbalized understanding and agreed with the plan. (2) Prediabetes: Code(s): R73.03 - Prediabetes Category: Medical Plan: Recent A1c is 5.7%. Healthy diet and routine exercise encouraged. Advised to perform A1c blood work in 6 months. Will review results and make changes as needed. Verbalized understanding and agreed with the plan. Orders: Orders Hemoglobin A1c 6 Months R73.03 - Prediabetes
[2024-10-18 15:24] VITALS: BP 130/80; PULSE 62; RESP 15; TEMP 36.6; O2SAT 95; BMI 24.4
--- OUTSIDE RECORDS SUMMARY | 2024-10-18 16:07 | XMS_ITS | Clinical Summary ---
Author Organization [employer] Address [address] [place] [address] Care Team Providers Care Television Program Director Name Role Phone Unavailable Primary Care Provider [...]
== END 2024-10-18 15:42 | disposition home or self-care (01) ==
LOC: HO.HMCFM 15:16
PROVIDERS: PCP Nurse Practitioner Family; Visit Provider Nurse Practitioner Family
DX: E55.9 Vitamin D deficiency, unspecified (principal); R73.03 Prediabetes

== ENCOUNTER 2024-11-22 13:43 | Outpatient (AMB) | payer BC, SELFPAY ==
--- NOTE | 2024-11-22 13:46 | MHC.OFFVIS ---
Intake Visit Reasons: elevated PSA Intake Note: New Patient is present for elevated PSA Urology Rx:none Blood Thinners:none Imaging completed: none Labs done 09/23/24 : PSA 4.19 Olive Picker Required: No Accompanied by: Self / Same As Patient Allergies aspirin Allergy (Verified 11/22/24 13:47) Hives HPI Comments Details: Ed is a pleasant male. He is a patient of Dr. Cabrales. He is seen for the following urologic conditions - elevated PSA Discussed elevated PSA Does drink 24 oz of coffee in the morning This may have thrown the number off Plan 4 month follow-up bladder ultrasound with PSA Minimal urinary symptoms Elevated PSA PSA - 07/01 3.2, 09/30 4.2 PFSH Medical History (Updated 10/18/24 @ 15:34 by Kenji Guillory CNP) Colon cancer screening Constipation Dysphagia Unintentional weight loss Surgical History History of colonoscopy History of esophagogastroduodenoscopy (EGD) Family History Mother Diabetes Family/Other Diabetes Alcoholism Brother Throat cancer Other Substance abuse Social History (Updated 10/18/24 @ 15:24 by Latha Cuellar MA) Housing: House Alcohol intake: current Patient Tobacco Use Status: Never used Tobacco e-Cigarette/Vaping Use: Never Used Second Hand Smoke Exposure: No Substance Use Type: Marijuana service: No Current occupational status: employed Current occupation: Engineering Current occupational exposures/hazards: No Cognitive needs: No Hearing needs: No Vision needs: Yes Review of Systems Const Denies chills and Denies fever(s) Card Reports no additional complaints and Denies syncope Resp Denies cough GI Denies abdominal pain and Denies heartburn Reports as per HPI and Denies change in libido Neuro Denies syncope Psych Denies change in libido Endo Denies change in libido Physical Exam Const General: cooperative, healthy appearing, comfortable and no acute distress Orientation/consciousness: patient oriented x3 HEENT Face and sinus: Yes normal facial exam Mouth: moist mucous membranes Neck Neck: Yes normal visual inspection, Yes full ROM and Yes trachea midline Chest Chest palpation & inspection: normal inspection of the chest Resp Effort & Inspection: normal respiratory effort, able to speak in complete sentences and no respiratory distress GI Inspection: Yes normal to inspection Back/Spine/Pelvis Cervical Spine: normal cervical lordosis Thoracic/Lumbar Spine: thoracic and lumbar spine normal to inspection Skin General skin exam: no rashes or lesions noted Neuro General: patient oriented x3, gait normal, tone normal and moves all extremities Extrem General: Yes normal to inspection and Yes capillary refill normal Assessment & Plan Assessment & Plan (1) Elevated PSA: Code(s): R97.20 - Elevated prostate specific antigen [PSA] Category: Medical Plan Four month follow-up bladder ultrasound Orders: Orders Prostate Specific Antigen 4 Months R97.20 - Elevated prostate specific antigen [PSA] US bladder 4 Months R39.12 - Poor urinary stream, R97.20 - Elevated prostate specific antigen [PSA] Patient Instructions: This note is constructed using voice recognition software. While every effort has been made to ensure accuracy cook house laborer errors may have been included. Imaging studies, laboratory and physical exam results were discussed and reviewed in detail. No major barriers to patient understanding were identified. An opportunity to ask questions regarding the treatment plan was provided. All questions were answered. The patient expressed understanding and agreement with the above treatment plan. The patient is aware they should contact our office by phone for worsening of their current condition or the appearance of new urologic symptoms. Compliance is encouraged with any medications and followup testing that is ordered. It is a privilege to participate in the urologic care of your patient. If you have any questions or concerns regarding treatment for the above conditions, or other urologic issues, please do not hesitate to contact me. The office telephone contact is [phone]. Sincerely, Dr Ezra Pisano MD, [facility] - Urology Compassionate Specialist Care for the Genitourinary System Coding Level of Care Code New Pt Level 4 (56378) Diagnoses Elevated PSA R97.20
--- OUTSIDE RECORDS SUMMARY | 2024-11-22 17:36 | XMS_ITS | Clinical Summary ---
Author Organization [employer] Address [address] [place] [address] Care Team Providers Care Server Programmer Name Role Phone Unavailable Primary Care Provider [...] COVID-19 Vaccine ( - 2023-2 5 season) 2024 Influenza Vaccine (#1) 2024 RSV Patients and [...]
== END 2024-11-22 14:20 | disposition home or self-care (01) ==
LOC: HO.HUSH 13:44
PROVIDERS: PCP Nurse Practitioner Family; Visit Provider Urology
DX: R97.20 Elevated prostate specific antigen [PSA] (principal); Z13.9 Encounter for screening, unspecified
CPT/HCPCS: 99204

== ENCOUNTER → 2024-11-22 13:43 | Outpatient (BNVA) | payer BC, SELFPAY | PROVIDERS: PCP Nurse Practitioner Family; Visit Provider Urology | DX: R97.20 Elevated prostate specific antigen [PSA] (principal) | CPT/HCPCS: 81003 ==

== ENCOUNTER 2024-12-23 08:19 | Outpatient (REF) | payer BC, SELFPAY | END 2024-12-23 08:20 | disposition home or self-care (01) | LOC: HO.LNP 08:19 | PROVIDERS: Visit Provider Nurse Practitioner Family | DX: K21.9 Gastro-esophageal reflux disease without esophagitis (principal) | CPT/HCPCS: 87338 ==

== ENCOUNTER 2025-02-14 15:40 | Outpatient (AMB) | payer BC, SELFPAY ==
--- NOTE | 2025-02-14 15:46 | MHC.OFFVIS ---
Vital Signs 02/14/25 15:47 Height 6 ft Weight 178 lb BMI 24.1 BP 150/65 H Blood Pressure Location Lt brachial Position Sitting Pulse 56 Intake Visit Reasons: 3 MO FOLLOW UP Intake Note: Patient follow up for lab/stool and X-ray results. BS is on 02/15 Patient cc: taste on his mouth and swallowing difficulties and poor balance. Denies any other GI issues. 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 Follow-up of reflux, dysphagia, constipation, and unintentional weight loss. He continues to experience dysphagia and a sour taste in his mouth, which he feels is not heartburn. He has not found relief with omeprazole or famotidine, therefore discontinued use. 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 His constipation has improved, with bowel movements occurring most days and a feeling of complete evacuation. He denies any blood in his stool. Recent workup included a negative stool test for H. pylori, a normal chest X-ray, and normal iron studies. Lab work revealed an A1c of 5.7, indicating prediabetes, and no evidence of hepatitis. He was also noted to have mild normocytic anemia, but there are no prior results for comparison to establish a baseline. He has a barium swallow scheduled for February 15 and an upper endoscopy with screening colonoscopy scheduled for March 13. [facility] Medical History (Updated 11/24/24 @ 15:08 by Elise Ayala CNP) Nausea Colon cancer screening Constipation Dysphagia Unintentional weight loss Surgical History History of colonoscopy History of esophagogastroduodenoscopy (EGD) Family History Mother Diabetes Family/Other Diabetes Alcoholism Brother Throat cancer Other Substance abuse Social History Housing: House Alcohol intake: current Patient Tobacco Use Status: Never used Tobacco e-Cigarette/Vaping Use: Never Used Second Hand Smoke Exposure: No Substance Use Type: Marijuana service: No Current occupational status: employed Current occupation: Engineering Current occupational exposures/hazards: No Cognitive needs: No Hearing needs: No Vision needs: Yes Review of Systems Const Reports as per HPI ENT Reports as per HPI Card Reports as per HPI Resp Reports as per HPI GI Reports as per HPI Reports as per HPI Physical Exam Vital Signs: Last Vital Signs Pulse 56 02/14/25 15:47 BP 150/65 H 02/14/25 15:47 BMI result Body Mass Index 24.1 Const General: healthy appearing, no acute distress and well developed Nutritional Appearance: average body habitus Orientation/consciousness: patient oriented x3 HEENT Head: Yes normal to inspection, Yes normocephalic and Yes atraumatic Face and sinus: Yes normal facial exam Throat: Yes postnasal drainage Eyes General: appearance normal, both eyes and all related structures Neck Neck: Yes normal visual inspection Resp Effort & Inspection: normal respiratory effort, able to speak in complete sentences, no tracheal deviation and symmetric chest movement Cardio Jugular venous distension: no JVD GI Inspection: Yes normal to inspection and No distended Palpation (GI): Soft to palpation, not firm, nontender and No hepatosplenomegaly present Auscultation: normal bowel sounds Neuro General: patient oriented x3 Gait exam (Neuro): Normal gait present Psych Appearance: grossly normal Mental Status: mental status grossly normal Speech and movement: Normal speech and movement present Affect: normal affect Attitude: cooperative Thought process: Normal thought process present Thought content: Normal thought content present Insight: Good insight present (Psych) Judgement: Good judgement present (Psych) Assessment & Plan Assessment & Plan (1) GERD (gastroesophageal reflux disease): Code(s): K21.9 - Gastro-esophageal reflux disease without esophagitis Category: Medical Qualifiers: Esophagitis presence: without esophagitis Qualified Code(s): K21.9 - Gastro-esophageal reflux disease without esophagitis Plan: The patient's symptom of a sour taste may be due to postnasal drip, which was noted on physical exam. - Recommended a trial of iucn-[id number] allergy medications such as generic Zyrtec or Claritin to see if it alleviates his symptoms. - The upcoming upper endoscopy will also help evaluate for other causes of his symptoms. (2) Constipation: Code(s): K59.00 - Constipation, unspecified Category: Medical Qualifiers: Constipation type: unspecified constipation type Qualified Code(s): K59.00 - Constipation, unspecified Plan: resolved. Now with regular bowel movements. (3) Dysphagia: Code(s): R13.10 - Dysphagia, unspecified Category: Medical Qualifiers: Dysphagia type: unspecified Qualified Code(s): R13.10 - Dysphagia, unspecified Plan: Continue with the plan for a barium swallow tomorrow and an upper endoscopy on March 13 to investigate for structural causes such as a hiatal hernia or strictures, especially given his history of muscular dystrophy. (4) Unintentional weight loss: Code(s): R63.4 - Abnormal weight loss Category: Medical Plan: The initial workup including chest x-ray and labs has been unremarkable. - The upcoming upper endoscopy and colonoscopy will further evaluate for a gastrointestinal cause of his weight loss. (5) Prediabetes: Code(s): R73.03 - Prediabetes Category: Medical Plan: Counseled the patient on lifestyle and diet modifications, including minimizing processed foods high in sugar and carbohydrates and increasing physical activity, to reduce the risk of progressing to diabetes. Plan Follow-up after endoscopy or sooner as needed Time: I spent a total of 30 minutes on the date of encounter which includes: Preparing to see the patient (reviewed previous documentation, test results and medical history) Performing a medically appropriate exam and/or evaluation Ordering medications, tests, and procedures Documenting clinical information in the health record Coding Level of Care Code Established Pt Est Pt Level 4 (69542) Patient Type Established Diagnoses Gastroesophageal reflux disease without esophagitis K21.9 Esophagitis presence: without esophagitis Constipation, unspecified constipation type K59.00 Constipation type: unspecified constipation type Dysphagia, unspecified type R13.10 Dysphagia type: unspecified Unintentional weight loss R63.4 Prediabetes R73.03
[2025-02-14 15:47] VITALS: BP 150/65; PULSE 56; BMI 24.1
--- OUTSIDE RECORDS SUMMARY | 2025-02-14 22:25 | XMS_ITS | Clinical Summary ---
Author Organization [employer] Address [address] [place] [address] [address] [place] [address] Care Team Providers Care Inseamer Name Role Phone Unavailable Primary Care Provider [...] FIT DNA/Cologuard 1960 FIT 1960 FOBT 1960 Lipid Panel 1960 Sigmoidoscopy 1960 Disability Screening 1960 Alcohol/Substance Use Screening 1972 Tobacco Screening 1972 DTaP/Tdap/Td Vaccines (1 - Tdap) 05/14/1979 Pneumococcal Vaccine: 50+ Ye ars (1 of 1 - PCV) 2010 Zoster Vaccines (1 of 2) 2010 COVID-19 Vaccine ( - 2024-2 6 season) 2024 Influenza Vaccine (#1) 2024 RSV [...]
== END 2025-02-14 16:44 | disposition home or self-care (01) ==
LOC: HO.HGI 15:41
PROVIDERS: PCP Nurse Practitioner Family; Visit Provider Nurse Practitioner Family
DX: K21.9 Gastro-esophageal reflux disease without esophagitis (principal); K59.00 Constipation, unspecified; R13.10 Dysphagia, unspecified; R63.4 Abnormal weight loss; R73.03 Prediabetes
CPT/HCPCS: 99214

== ENCOUNTER 2025-02-15 09:55 | Outpatient (REF) | payer BC, SELFPAY ==
--- NOTE | ~2025-02-15 | FL_ITS ---
EXAMINATION: XR FLUOROSCOPY UPPER GI SERIES CLINICAL INFORMATION: 64-year-old male complaining of dysphagia to solids and liquids, constant, with sour taste in mouth episodically. COMPARISON: No prior. TECHNIQUE: Fluoroscopic air contrast upper GI examination was performed utilizing standard techniques with thin and thick barium and effervescent granules. Numerous spot images were obtained. Several fluoroscopic image hold cine sequences were also obtained. FINDINGS: UPPER GI SERIES: Lateral cine images of the oropharynx and hypopharynx demonstrate normal swallow mechanism with normal epiglottic inversion and soft palate elevation. No laryngeal penetration, glottic or subglottic aspiration identified. Hypopharyngeal structures appear normal without evidence of mass or diverticulum. There was no significant cricopharyngeal achalasia. Dual and single contrast images of the esophagus demonstrate normal caliber, contour, and mucosal pattern. No evidence of stricture, mass, or ulcerations identified. Esophageal peristalsis was mildly disordered. There was a small type I hiatus hernia. A Schatzki's ring at the GE junction was noted, which was patulous (RF 1-10, image 35). There was significant gastroesophageal reflux to the level of the thoracic inlet noted during the course of the examination. Dual contrast and single contrast images of the stomach demonstrated normal contour and mucosal pattern without evidence of mass, ulceration, or other abnormality. Normal gastric rugal fold pattern. Contrast freely passed into the gastric antrum and duodenal bulb without delay. Single and air-contrast images of the duodenal bulb demonstrate no abnormality. The duodenal sweep has a normal appearance, course, and mucosal fold appearance. The imaged small bowel has a normal appearance. FLUOROSCOPY TIME: 3 minutes, 16 seconds Number of Spot Images:12 Number of cines obtained 12 DOSE AREA PRODUCT: 3152 uGy-m2 (microgray-meter squared) FL/FL upper GI w air w Ba Swallow IMPRESSION: 1. Mildly disordered esophageal peristalsis. 2. Small type I hiatus hernia. 3. Schatzki's ring at the GE junction, which is nonobstructing/patulous. 4. Episodic gastroesophageal reflux to the level of the thoracic inlet. 5. Normal-appearing stomach and duodenum. Electronically signed by: Pepe Meza MD 02/15/2025 12:06 PM [facility]
== END 2025-02-15 09:56 | disposition home or self-care (01) ==
LOC: HO.XRAY 09:55
PROVIDERS: PCP Nurse Practitioner Family; Visit Provider Nurse Practitioner Family
DX: K21.9 Gastro-esophageal reflux disease without esophagitis (principal); R13.10 Dysphagia, unspecified; R11.0 Nausea
CPT/HCPCS: 74246

== ENCOUNTER → 2025-02-15 10:09 | Outpatient (BNV) | payer BC, SELFPAY | PROVIDERS: PCP Nurse Practitioner Family; Visit Provider Radiology Diagnostic Radiology | DX: K21.9 Gastro-esophageal reflux disease without esophagitis (principal); K44.9 Diaphragmatic hernia without obstruction or gangrene | CPT/HCPCS: 74246 ==

== ENCOUNTER 2025-02-16 13:46 | Outpatient (AMB) | payer BC, SELFPAY ==
--- NOTE | 2025-02-16 13:48 | A.OFFVIS_ITS ---
Intake Visit Reasons: upper GI series results Intake Note: Patient telehealth follow up for Upper GI series results. Patient denies any GI issues for today visit. Manager Medical Affairs Required: No Allergies aspirin Allergy (Verified 02/16/25 13:48) [facility] upper GI series results: Details: Patient is a 64-year-old male with PMH of elevated LDL Telephonic follow up to review the results of his upper GI series, which was performed for symptoms of sour taste and dysphagia. The findings from the study included mildly disordered esophageal peristalsis, a non-obstructing Schatzki's ring, a small hiatal hernia, and reflux at the thoracic inlet. His stomach and the upper part of his small intestine appeared normal. [facility] Medical History (Updated 02/16/25 @ 14:40 by Elise Ayala CNP) Hiatal hernia Nausea Colon cancer screening Constipation Dysphagia Unintentional weight loss Surgical History History of colonoscopy History of esophagogastroduodenoscopy (EGD) Family History Mother Diabetes Family/Other Diabetes Alcoholism Brother Throat cancer Other Substance abuse Social History Housing: House Alcohol intake: current Patient Tobacco Use Status: Never used Tobacco e-Cigarette/Vaping Use: Never Used Second Hand Smoke Exposure: No Substance Use Type: Marijuana service: No Current occupational status: employed Current occupation: Engineering Current occupational exposures/hazards: No Cognitive needs: No Hearing needs: No Vision needs: Yes Review of Systems Const Reports as per HPI ENT Reports as per HPI Card Reports as per HPI Resp Reports as per HPI GI Reports as per HPI Reports as per HPI Neuro Reports Abnormal speech present Physical Exam Const General: cooperative and no acute distress Orientation/consciousness: patient oriented x3 Resp Other: Normal breath sounds/voice sounds by phone, breathing effortless, no wheezing noted. Patient spoke in full sentences without dif Neuro General: patient oriented x3 Cognition (Neuro): normal cognition Speech: Abnormal speech present Psych Appearance: grossly normal Mental Status: mental status grossly normal Speech and movement: Normal speech and movement present Affect: normal affect Attitude: cooperative Thought process: Normal thought process present Thought content: Normal thought content present Insight: Good insight present (Psych) Judgement: Good judgement present (Psych) Results Reviewed Results Reviewed: Date of Service: 02/15/25 Procedure(s): FL upper GI w air w Ba Swallow Accession Number(s): [id number] cc: Elise Ayala CNP; Kenji Guillory CNP~ Reason for Exam: K21.9 - Gastro-esophageal reflux disease without esophagitis EXAMINATION: XR FLUOROSCOPY UPPER GI SERIES CLINICAL INFORMATION: 64-year-old male complaining of dysphagia to solids and liquids, constant, with sour taste in mouth episodically. COMPARISON: No prior. TECHNIQUE: Fluoroscopic air contrast upper GI examination was performed utilizing standard techniques with thin and thick barium and effervescent granules. Numerous spot images were obtained. Several fluoroscopic image hold cine sequences were also obtained. FINDINGS: UPPER GI SERIES: Lateral cine images of the oropharynx and hypopharynx demonstrate normal swallow mechanism with normal epiglottic inversion and soft palate elevation. No laryngeal penetration, glottic or subglottic aspiration identified. Hypopharyngeal structures appear normal without evidence of mass or diverticulum. There was no significant cricopharyngeal achalasia. Dual and single contrast images of the esophagus demonstrate normal caliber, contour, and mucosal pattern. No evidence of stricture, mass, or ulcerations identified. Esophageal peristalsis was mildly disordered. There was a small type I hiatus hernia. A Schatzki's ring at the GE junction was noted, which was patulous (RF 1-10, image 35). There was significant gastroesophageal reflux to the level of the thoracic inlet noted during the course of the examination. Dual contrast and single contrast images of the stomach demonstrated normal contour and mucosal pattern without evidence of mass, ulceration, or other abnormality. Normal gastric rugal fold pattern. Contrast freely passed into the gastric antrum and duodenal bulb without delay. Single and air-contrast images of the duodenal bulb demonstrate no abnormality. The duodenal sweep has a normal appearance, course, and mucosal fold appearance. The imaged small bowel has a normal appearance. FLUOROSCOPY TIME: 3 minutes, 16 seconds Number of Spot Images:12 Number of cines obtained 12 DOSE AREA PRODUCT: 3152 uGy-m2 (microgray-meter squared) FL/FL upper GI w air w Ba Swallow IMPRESSION: 1. Mildly disordered esophageal peristalsis. 2. Small type I hiatus hernia. 3. Schatzki's ring at the GE junction, which is nonobstructing/patulous. 4. Episodic gastroesophageal reflux to the level of the thoracic inlet. 5. Normal-appearing stomach and duodenum. Date of Service: 10/13/24 Procedure(s): XR chest 2V Accession Number(s): [id number] cc: Elise Ayala RAIL CAR UNLOADER; Kenji Guillory RAIL CAR UNLOADER~ EXAMINATION: XR CHEST 2 VIEWS HISTORY: R63.4 - Abnormal weight loss COMPARISON: There are no prior studies available for comparison. FINDINGS: PA and lateral views of the chest are submitted. The lungs are expanded and clear. There is no pleural effusion, pneumothorax, or pulmonary vascular congestion. The heart is normal in size. The bones are intact. XR/XR chest 2V IMPRESSION: Clear lungs. Assessment & Plan Assessment & Plan (1) Dysphagia: Code(s): R13.10 - Dysphagia, unspecified Category: Medical Qualifiers: Dysphagia type: unspecified Qualified Code(s): R13.10 - Dysphagia, unspecified Plan: The patient's upper GI series revealed a Schatzki's ring and mildly slowed esophageal peristalsis, which are contributing to his dysphagia. - The plan is to proceed with the scheduled upper endoscopy on March 13. - During the endoscopy, a balloon dilation of the ring may be performed to manage the Schatzki's ring and potentially improve his swallowing. (2) Hiatal hernia: Code(s): K44.9 - Diaphragmatic hernia without obstruction or gangrene Category: Medical Plan: A small hiatal hernia and reflux at the thoracic inlet were also identified on the upper GI series. - The hiatal hernia was noted to be small, and surgical management may not be indicated. - The patient agreed to defer consideration of a surgical consultation until after the upper endoscopy is completed. Plan Follow-up after endoscopy or sooner as needed Time: I spent a total of 16 minutes on the date of encounter which includes: Preparing to see the patient (reviewed previous documentation, test results and medical history) Performing a medically appropriate exam and/or evaluation Ordering medications, tests, and procedures Documenting clinical information in the health record Coding Level of Care Code Established Pt Tele Est Pt Level 2 (99418) Patient Type Established Diagnoses Dysphagia, unspecified type R13.10 Dysphagia type: unspecified Hiatal hernia K44.9
--- OUTSIDE RECORDS SUMMARY | 2025-02-16 21:05 | XMS_ITS | Clinical Summary ---
Author Organization [employer] Address [address] [place] [address] [address] [place] [address] Care Team Providers Care Retail Sales Associate Bilingual Name Role Phone Unavailable Primary Care Provider [...]
== END 2025-02-16 14:47 | disposition home or self-care (01) ==
LOC: HO.HGI 13:46
PROVIDERS: PCP Nurse Practitioner Family; Visit Provider Nurse Practitioner Family
DX: R13.10 Dysphagia, unspecified (principal); K44.9 Diaphragmatic hernia without obstruction or gangrene
CPT/HCPCS: 98967